=== PATIENT | male | born 1985 | race Caucasian/White ===

== ENCOUNTER 2021-08-17 20:21 | Emergency (ER) | payer OTHER, SELFPAY ==
[2021-08-17 20:29] VITALS: BP 143/88; PULSE 94; RESP 18; TEMP 35.9; O2SAT 99
--- NOTE | 2021-08-17 22:36 | PC.NURSE ---
Pt exits ED prior to seeing provider, ambulatory with steady gait out of ED. No sign of distress.
== END 2021-08-17 22:36 | disposition left against medical advice (07) ==
LOC: ANHED 22:42
DX: R10.9 Unspecified abdominal pain (principal)
CPT/HCPCS: 99199

== ENCOUNTER → 2023-08-27 12:47 | Outpatient (CLI) | payer OTHER, SELFPAY ==
--- NOTE | ~2023-08-27 | XR_ITS ---
EXAM: XR lumbar spine 2-3V DATE: 08/27/2023 13:18 HISTORY: M54.50 - Low back pain, unspecified . COMPARISON: None available. FINDINGS: 5 nonrib-bearing lumbar-type vertebral bodies. Pedicles intact. Normal vertebral body alig nment. Loss of the normal lumbar lumbar lordosis. Vertebral body heights preserved. Multilevel mild d isc space narrowing and marginal osteophytosis. Mild lower lumbar facet hypertrophy and sclerosis. No fracture or dislocation. IMPRESSION: Mild multilevel degenerative disc disease and facet arthropathy. Reviewed, dictated and finalized at location K. ATTENDANT
== END ==
PROVIDERS: PCP Physician Assistant Medical; Visit Provider Physician Assistant Medical
DX: M51.36 Other intervertebral disc degeneration, lumbar region (principal)
CPT/HCPCS: 72100

== ENCOUNTER 2024-03-05 11:04 | Emergency (ER) | payer OTHER, SELFPAY ==
--- NOTE | ~2024-03-05 | CT_ITS ---
CT lumbar spine wo con Ordering provider: Maegan Hanna PA-C History: 38 years Male with . low back pain radiating down the legs . Comparison: None. Technique: CT lumbar spine without contrast. Automated exposure control and iterative reconstruction technique were employed. The dose-length product was 961.46 mGy-cm. FINDINGS: VERTEBRAE: Normal height and alignment. No subluxation or visible acute fracture. DISC SPACES: Slight narrowing at the level of L5-S1. Endplate changes seen at the inferior evidence o f endplates of L5. Schmorl's nodes are seen in the area. T12-L1: No stenosis. L1-L2: No stenosis. L2-L3: No stenosis. L3-L4: No stenosis. Mild diffuse disc bulge. L4-L5: No stenosis. Mild diffuse disc bulge. L5-S1: No stenosis. Mild to moderate diffuse disc bulge with bilateral narrowing of the foramina ner ve root compression. PARASPINOUS SOFT TISSUES: Mild atheromatous disease of the abdominal aorta. IMPRESSION: No acute osseous abnormality. Diffuse disc bulge at the level of L5-S1 with narrowing of the foramina and highly suggestive nerve r oot compression. Clinical correlation advised. Reviewed, dictated and finalized at location A. IMPRESSION: No acute osseous abnormality. Diffuse disc bulge at the level of L5-S1 with narrowing of the foramina and hig hly suggestive nerve root compression. Clinical correlation advised.
[2024-03-05 11:09] VITALS: BP 145/72; PULSE 92; RESP 17; TEMP 36.6; O2SAT 100
--- NOTE | 2024-03-05 11:26 | ED.BACK ---
HPI - Back Pain/Injury General Chief Complaint: Back Pain/Injury Stated Complaint: back pain Time Seen by Provider: 03/05/24 11:09 Source: patient Mode of arrival: ambulatory Limitations: no limitations History of Present Illness HPI Narrative: this is a 38-year-old male that presents to the emergency department for low back pain. Reports he has been struggling with this for several months. No recent injuries or trauma. He woke up today his pain was worse than usual. He tried to take some muscle relaxers with little relief. Reports some tingling in his legs. Denies weakness, numbness, bowel / bladder incontinence, saddle anesthesia. Related Data Allergies Allergy/AdvReac Type Severity Reaction Status Date / Time No Known Allergies Allergy Verified 08/20/23 15:38 Review of Systems Review of Systems: CONSTITUTIONAL: Denies fever MUSCULOSKELETAL: Reports back pain, joint pain, and myalgia. NEUROLOGIC: Denies numbness, or weakness. All systems reviewed & are unremarkable except as noted in HPI and below PMFSH Past Medical History Medical History (Updated 03/05/24 @ 12:52 by Maegan Hanna PA-C) No active medical problems Family History Family History Other Family history of coronary artery disease Family history of elevated blood lipids Family history of malignant neoplasm Family history of tuberculosis Social History Social History Smoking status: Former smoker Second hand tobacco smoke exposure: No Alcohol intake: current Drinks per week: 2 Alcohol use details: per day Substance use: never Substance use type: does not use Do You Feel Safe in your Home?: Yes Lack of Transportation: No Lack of Food: Never True Current Housing: I Have Housing Concerned About Future Housing: No Difficulty Paying Gas/Electric Bills: No Difficulty Paying for Meds: No Currently Unemployed: YES Education: High School Diploma/GED Living arrangements: with family Occupation/Education: occupation Gender identity (if verbalized by the patient): Male Sexual Orientation (if Verbalized by the Patient): Straight or Heterosexual Spiritual care concerns: No Agree to blood products: No Exam Narrative: GENERAL: Well-appearing, well-nourished, and in no acute distress. HEAD: Normocephalic, atraumatic. EYES: EOMI. CHEST: Clear to auscultation. No respiratory distress. No wheezes rales or rhonchi HEART: Regular rate and rhythm. No murmur heard. Normal peripheral pulses. BACK: no midline spinal tenderness EXTREMITIES: Normal range of motion. No edema. Normal DP pulses. Strength equal in bilateral lower extremities (5/5) SKIN: Warm, dry, no rash. NEURO: No focal deficits. Alert and oriented x3. Normal gait PSYCH: Normal mood and affect Course Course Emergency Course: patient updated on his workup and agrees with plan of care Vital Signs Vital signs: Vital Signs Temperature 97.8 F 03/05/24 11:09 Pulse Rate 92 03/05/24 11:09 Respiratory Rate 17 03/05/24 11:09 Blood Pressure 145/72 H 03/05/24 11:09 Pulse Oximetry 100 03/05/24 11:09 Oxygen Delivery Room Air 03/05/24 11:09 Temperature 97.8 F 03/05/24 11:09 Pulse Rate 92 03/05/24 11:09 Respiratory Rate 17 03/05/24 11:09 Blood Pressure 145/72 H 03/05/24 11:09 Pulse Oximetry 100 03/05/24 11:09 Oxygen Delivery Room Air 03/05/24 11:09 MDM - Back Pain/Injury MDM Narrative Medical decision making narrative: Patient presents to the emergency department for acute on chronic low back pain. He is neurologically intact. Denies any saddle anesthesia or bowel/ bladder incontinence. CT lumbar spine is without acute osseous abnormalities. Does show a disc bulge at L5-S1 with likely some nerve compression. Patient was updated on his workup and agrees with plan o
[2024-03-05] MEDS: ACETAMINOPHEN 500 MG TABLET 1000 MG PO (11:47)
[2024-03-05] MEDS: KETOROLAC 30 MG/ML VIAL (*BKC) IM (11:48)
[2024-03-05 13:05] VITALS: BP 136/84; PULSE 78; RESP 16; TEMP 36.7; O2SAT 100
== END 2024-03-05 13:08 | disposition home or self-care (01) ==
PROVIDERS: Emergency Provider Physician Assistant; PCP Family Medicine
DX: M51.27 Other intervertebral disc displacement, lumbosacral region (principal); F17.210 Nicotine dependence, cigarettes, uncomplicated
CPT/HCPCS: 72131; 96372; 99284; A9270; J1885

== ENCOUNTER 2024-03-16 13:02 | Outpatient (CLI) | payer OTHER, SELFPAY ==
--- NOTE | ~2024-03-16 | MR_ITS ---
MRI of the lumbar spine Clinical History: Degenerative disc disease Technique: Axial T2-weighted images, and sagittal T1-weighted, T2-weighted, and T2 fat-sat images wer e acquired. Findings: There is no fracture or subluxation of the lumbar spine. There is a small zone of the super ior endplate of L5. There is a 1 Modic changes about the L4-L5 and L5-S1 disc space. No suspicious alisha ne marrow signal reality seen. At L1-L2, L2-L3, L3-L4, there are mild degenerative disc changes. No significant disc bulge at these levels. There is moderate facet arthropathy at these levels. No spinal canal stenosis or definite jus ral foraminal narrowing at these levels. At L4-L5, there is mild disc bulge with moderate facet arthropathy. No central canal stenosis or defi nite neural foraminal narrowing. At L5-S1, there is moderate to advanced degenerative disc narrowing. There is minimal disc bulge. The re is a probable extruded disc fragment at the right paracentral region (sagittal T2 image 9), which may impinge the descending right-sided S1-S2 level nerve root. There is moderate facet arthropathy. N o central canal stenosis or neural foraminal narrowing. Impression: Suspected extruded disc fragment at the right paracentral region and L5-S1, which may impinge the melinda cending right-sided S1-S2 level nerve root. Additional mild to moderate degenerative change, as above. Reviewed, dictated and finalized at [facility]. Impression: Suspected extruded disc fragment at the right paracentral region and L5-S1, whi ch may impinge the descending right-sided S1-S2 level nerve root. Additional mild to moderate degenerative change, as above.
== END 2024-03-16 13:03 ==
LOC: GOSHIMG 13:03
PROVIDERS: PCP Family Medicine; Visit Provider Student in an Organized Health Care Education/Training Program
DX: M51.36 Other intervertebral disc degeneration, lumbar region (principal)
CPT/HCPCS: 72148